=== PATIENT | female | born 1980 | race African-American/Black ===

== ENCOUNTER 2023-04-27 14:49 | Emergency (ER) | payer MEDICAID, OTHER ==
[~2023-04-27] VITALS: Ht 167.6 cm; Wt 115.0 kg
[2023-04-27] MEDS ORDERED: MECLIZINE HCL 25 MG TAB PO ONE (15:15)
[2023-04-27] MEDS ORDERED: ONDANSETRON ODT 4 MG TAB PO ONE (15:15)
[2023-04-27 15:27] LABS: Basophils # (auto) 0 10 ^3/uL (0-0.2); Basophils % (auto) 0.7 % (0.0-2.0); Eosinophils # (auto) 0.1 10 ^3/uL (0-0.8)
[2023-04-27 15:28] LABS: Eosinophils % (auto) 1.9 % (0.0-7.0); Hematocrit 37.2 % (36.0-46.0); Hemoglobin 12.1 g/dL (12.2-16.2); Lymphocytes # (auto) 1.9 10 ^3/uL (0.4-5.4); Lymphocytes % (auto) 28.6 % (10.0-50.0); Mean Corpuscular Hemoglobin 24.8 pg (28.0-32.0); Mean Corpuscular Hgb Conc. 32.5 g/dL (32.0-36.0); Mean Corpuscular Volume 76.3 fL (80.0-100.0); Monocytes # (auto) 0.4 10 ^3/uL (0-1.3); Monocytes % (auto) 6.8 % (0.0-12.0); Nucleated Red Blood Cells % 0.1 %; Red Blood Cells 4.87 10^6/uL (4.0-5.20); Red Cell Distribution Width 14.7 % (11.8-14.3); White Blood Cell 6.5 10^3/uL (4.4-10.8)
[2023-04-27 15:43] LABS: Alanine Aminotransferase 12 U/L (7-40); Albumin 4.4 g/dL (3.2-4.8); Alkaline Phosphatase 100 U/L (46-116); Anion Gap 6 (5-15); Aspartate Aminotransferase 15 U/L (13-40); BUN/Creatinine Ratio 13.2 (10.0-20.0); Blood Urea Nitrogen 12 mg/dL (9-23); Calcium 9.1 mg/dL (8.7-10.4); Carbon Dioxide 23 mmol/L (20-30); Chloride 107 mmol/L (98-107); Glucose 85 mg/dL (74-106); Lipase 38 U/L (12-53); Potassium 4.1 mmol/L (3.5-5.1); Sodium 136 mmol/L (136-145)
[2023-04-27 15:44] LABS: Bilirubin, Total 0.3 mg/dL (0.2-1.0); Total Protein 8.4 g/dL (5.7-8.2)
[2023-04-27 15:48] LABS: Urine Bacteria NONE SEEN /hpf (None Seen); Urine Blood 2+ /uL (Negative); Urine Clarity HAZY (Clear); Urine Color Yellow (Yellow); Urine Hyaline Cast FEW /lpf (0 - 2); Urine Mucus FEW (None Seen); Urine Protein, UAD Negative (Negative); Urine Specific Gravity 1.014 (1.001-1.035); Urine Urobilinogen Normal (Negative); Urine WBC 33 /hpf (0 - 5)
[2023-04-27 16:52] VITALS: BP 145/89
[2023-04-27 16:53] VITALS: PULSE 75; RESP 16; O2SAT 100
[2023-04-27] MEDS ORDERED: NITR-87 PO (18:23)
[2023-04-27] MEDS ORDERED: ZOFR4T PO (18:23)
[2023-04-27] MEDS ORDERED: MECL1TAB42 PO (18:23)
== END 2023-04-27 18:23 | disposition home or self-care (01) ==
LOC: ER 14:49
DX: R42 Dizziness and giddiness (principal); N39.0 Urinary tract infection, site not specified; E16.2 Hypoglycemia, unspecified; Z32.02 Encounter for pregnancy test, result negative
CPT/HCPCS: 36415; 70450; 80053; 81001; 81025; 82962; 83690; 83880; 85025; 93005; 99284; J8597; Q0162